=== PATIENT | female | born 1960 | race Caucasian/White ===

== ENCOUNTER 2017-10-15 10:41 | Emergency (ER) | payer OTHER ==
[~2017-10-15] VITALS: Ht 167.6 cm; Wt 70.8 kg
[2017-10-15] MEDS ORDERED: ONDANSETRON PF 4 MG/2 ML VIAL. IV ONE (11:00)
[2017-10-15] MEDS ORDERED: LIDOCAINE 1% Multi-Dose 20 ML VIAL. IJ ONE (11:00)
[2017-10-15] MEDS ORDERED: HYDROmorphone PF 1 MG/ML DISP.SYRIN IV PRN (11:00)
--- NOTE | 2017-10-15 11:16 | RAD ---
Left wrist, 4 views, 10/15/2017: History: Fall, left wrist pain There is a fracture of the distal left radius without significant displacement or angulation. There is a tiny cortical fracture at the tip of the ulnar styloid of indeterminate age. The carpal bones are intact. There is considerable hypertrophic degenerative change at the first CMC joint. Moderate diffuse soft tissue swelling is present about the wrist. IMPRESSION: Nondisplaced distal radial fracture.
[2017-10-15] MEDS ORDERED: HYDR-2758 PO (11:17)
--- NOTE | 2017-10-15 11:17 | PHYS DOC ---
Past History Past Medical History: No Pertinent History Past Surgical History: No Surgical History Alcohol Use: Occasionally Drug Use: None Adult General Chief Complaint Chief Complaint: UPPER EXTREMITY INJURY HPI HPI 57-year-old female presenting to the emergency department today with left wrist injury. She reports walking her dog when he pulled her and she fell with an outstretched hand. She has pain in her wrist with swelling and deformity. The pain is sharp severe nonradiating intermittent and without alleviating factors. She denies any other injuries. She denies head injury neck pain chest pain abdominal pain or any other injuries to her extremities. Review of systems is negative for loss of consciousness, head injury vision changes syncope chest pain or shortness of breath. All other review of systems is negative unless otherwise noted in history of present illness. ED course: 57-year-old female presenting to the emergency department today with injury to her left wrist. She is right-hand dominant. X-ray shows comminuted radial fracture. I discussed the case with the orthopedic surgeon on-call doctor [Dr. Wu]. We placed a hematoma block and performed a closed reduction. Repeat x-rays obtained after showing adequate reduction. The patient was then discharged home in stable condition to follow up with our orthopedic surgeon in in 3 days on friday morning. They were to return if their symptoms worsened or if they were concerned for any reason. [id number] discharge instructions and return precautions were given. Patient's questions were answered to their satisfaction. Patient is comfortable with plan. Procedure note: The patient was placed in appropriate position. 1% lidocaine hematoma block administered in the usual fashion. Adequate anesthesia obtained. Closed reduction performed in the usual fashion. Patient tolerated the procedure well without any complications. volar splint applied in the intrinsic plus positioning. Postreduction neurovascular status examination performed which showed 2 second cap refill normal sensation in all nerve distributions and normal motor function of the hand. No complications. Review of Systems Review of Systems SEE ABOVE. Allergies Allergies Allergies Coded Allergies Type Severity Reaction Last Updated Verified No Known Drug Allergies 10/15/17 No Physical Exam Physical Exam SEE ABOVE Constitutional: Well developed, well nourished, no acute distress, non-toxic appearance. HENT: Normocephalic, atraumatic, bilateral external ears normal, oropharynx moist, no oral exudates, nose normal. [] Eyes: PERRLA, EOMI, conjunctiva normal, no discharge. [] Neck: Normal range of motion, no tenderness, supple, no stridor. Cardiovascular:Heart rate regular rhythm, no murmur [] Lungs & Thorax: Bilateral breath sounds clear to auscultation [] Abdomen: Bowel sounds normal, soft, no tenderness, no masses, no pulsatile masses. Skin: Warm, dry, no erythema, no rash. [] Back: No tenderness, no CVA tenderness. [] Extremities: The patient's left upper extremity is warm and well perfused with palpable pulse. 2 second cap refill. There is a deformity at the wrist. No ecchymosis lacerations or abrasions of the overlying skin. Patient is able to make it a okay, given a thumbs up and cross her fingers. Patient has normal sensation in the radial and ulnar distribution. She reports mild paresthesias in the median distribution prior to manipulation. The patient's left elbow and shoulder proximally are nontender with normal range of motion. The remainder the extremities are neurovascularly intact with 2 second cap refill a palpable pulse and normal range of motion of the joints. Nontender extremities otherwise. Neurologic: Alert and oriented X 3, normal motor function, normal sensory function, no focal deficits noted. Psychologic: Affect normal, judgement normal, mood normal. [] Current Patient Data Vital Signs Vital Signs Date Time Temp Pulse Resp B/P (MAP) Pulse Ox O2 Delivery O2 Flow Rate FiO2 10/15/17 10:55 98.3 83 18 94 Room Air EKG EKG [] Radiology/Procedures Radiology/Procedures [] Course & Med Decision Making Course & Med Decision Making Pertinent Labs and Imaging studies reviewed. (See chart for details) [] Dragon Disclaimer Dragon Disclaimer This electronic medical record was generated, in whole or in part, using a voice recognition dictation system. Departure Departure: Impression: Primary Impression: Radial head fracture, closed Disposition: 01 HOME, SELF-CARE Condition: STABLE Referrals: TONY RICO DO (PCP) Patient Instructions: Radial Head Fracture Additional Instructions: Thank you for allowing us to participate in your care today. Followup with orthopedic surgeon in 3 days on Friday. Call your Primary Doctor tomorrow and inform them of your visit today. If you do not have a primary care provider you can ask for a list of our primary care providers. Return to the emergency department you have any new or concerning findings. Dr. Brando Wu: Address: [address] [place] [address] [address], [place] [address] This should be evaluated by the primary care physician and any necessary consulting services for continued management within a few days after discharge. Return to emergency room if you have any new or concerning symptoms including but not limited to fever, chills, nausea, vomiting, intractable pain, any new rashes, chest pain, shortness of air, uncontrolled bleeding, difficulty breathing, and/or vision loss. You may have been prescribed medication that can change in your level of thinking and ability to operate machinery. These medications include hydrocodone and Ativan. Also, Benadryl has been known to do this as well. Be sure to check with your pharmacist and ask if the medications you've prescribed can affect your level of consciousness. I recommend not operating heavy machinery or driving while on medication such as these. Scripts Hydrocodone Bit/Acetaminophen (HYDROCODONE-APAP 5-325 ) 1 Each Tablet 1 TAB PO PRN Q6HRS Y for PAIN, #20 TAB 0 Refills Prov: PATRICK HINES MD 10/15/17 Splinting The patient was informed of the closed radial fracture on x-ray. We placed a volar splint in the emergency department checked by myself. 2 second cap refill. Normal hand sensation after splint application. PATRICK HINES MD Oct 15, 2017 11:17
[2017-10-15] MEDS ORDERED: HYDROmorphone PF 2 MG/ML VIAL IV PRN (11:30)
[2017-10-15] MEDS ORDERED: IV NORMAL SALINE 1,000ML 1,000 ML IV ONE (11:30)
--- NOTE | 2017-10-15 12:57 | RAD ---
Portable left wrist, 3 views, 10/15/2017: History: Postreduction evaluation Comparison is made to a study from earlier the same day. A radiopaque splint is now in place. The comminuted distal radial fracture is again noted. The major fracture fragments are in good position. A fracture line does involve the articular surface of the distal radius. IMPRESSION: Good alignment of the comminuted distal radial fracture.
[2017-10-15 13:27] VITALS: BP 128/63
== END 2017-10-15 13:29 | disposition home or self-care (01) ==
LOC: ER 10:41
DX: S52.122A Displaced fracture of head of left radius, initial encounter for closed fracture (principal); W19.XXXA Unspecified fall, initial encounter; Y93.K1 Activity, walking an animal; Y99.8 Other external cause status; Y92.89 Other specified places as the place of occurrence of the external cause
CPT/HCPCS: 25605; 73110; 96361; 96374; 96375; 99285; J1170; J2405; J7030

== ENCOUNTER 2017-10-17 16:17 | Emergency (ER) | payer OTHER ==
[~2017-10-17] VITALS: Ht 167.6 cm; Wt 70.8 kg
[~2017-10-17 16:17] MED LIST: HYDR-2758 PO
--- NOTE | 2017-10-17 17:02 | PHYS DOC ---
General Chief Complaint: DRESSING CHANGE Stated Complaint: DRESSING CHANGE Time Seen by MD: 16:59 Source: patient Exam Limitations: no limitations Problems: History of Present Illness Initial Comments Patient is a 57-year-old female who comes to the ED with left arm pain. Patient slipped on the ice on October 15 suffered an arm fracture was seen at [facility]. A splint was placed and she was discharged with pain medications and a referral to see Dr. Wu orthopedics. She has appointment to see or so on Friday, she came in today for arm swelling on arrival her wedding ring was cut off the circulation to her left ring finger essentially causing a tourniquet injury. Due to extremely high ED volume RN removed ring from fourth left finger with ring cutter and reapplied splint to her left arm after loosening up. Patient reported immediate relief of her pain symptoms and on my evaluation most of her left hand finger swellings had nearly resolved. She was essentially asymptomatic upon my evaluation. Onset: other Severity: moderate Pain/Injury Location: left arm, left 4th finger Method of Injury: other Modifying Factors: improves with other Allergies: Coded Allergies: No Known Drug Allergies (Unverified , 10/15/17) Past Medical History Medical History: no pertinent history Surgical History: noncontributory Social History Smoker: cigarettes Alcohol: occasionally Drugs: none Review of Systems Constitutional: denies chills, denies fever Respiratory: denies cough, denies shortness of breath Cardiovascular: denies chest pain, denies palpitations Gastrointestinal: denies nausea, denies vomiting Musculoskeletal: see HPI Skin: see HPI Psychiatric/Neurological: see HPI Physical Exam General Appearance: WD/WN, mild distress HEENT: PERRL/EOMI, normal ENT inspection Neck: non-tender, supple Cardiovascular/Respiratory: normal peripheral pulses, no respiratory distress Back: normal inspection, no vertebral tenderness Elbow/Forearm: swelling (splint applied, there apparently been interval swelling since its initial application causing a tourniquet injury as well as to her distal fingers with swelling numbness and tingling no difficulty with motor) Hand: limited ROM, soft tissue tenderness, stiffness, swelling Neurologic/Tendon: normal motor functions, normal tendon functions, other ( numbness and tingling at the left fourth fingers worse with the ring finger) Psychiatric: alert, oriented x 3 Skin: warm/dry Orders, Labs, Meds Patient expressed near immediate relief of symptoms after splint was loosened and ring was removed. Neurologic status returned to normal she had good capillary refill sensation and motor in the left upper extremity. I discussed signs and symptoms to monitor as well as indications for urgent return to the department. Patient's questions were answered to her satisfaction and she expressed agreement and understanding of the treatment plan will follow-up with Dr. Wu as scheduled. Departure Time of Disposition: 17: Disposition: HOME, SELF-CARE Diagnosis: L hand/4th finger tourniquet injury, dressing banegas Condition: IMPROVED Patient Instructions: Dressing Change, [id number] Additional Instructions: Continue fracture care and medication protocol as before. Follow-up with orthopedics on Friday as scheduled. Return to ED with new or changing symptoms. JUAN CARLOS QUINTERO DO Oct 17, 2017 17:02
[2017-10-17 17:09] VITALS: BP 125/75
== END 2017-10-17 17:09 | disposition home or self-care (01) ==
LOC: ER 16:17
DX: S60.445A External constriction of left ring finger, initial encounter (principal); F17.210 Nicotine dependence, cigarettes, uncomplicated; W49.04XA Ring or other jewelry causing external constriction, initial encounter; Y93.89 Activity, other specified; Y92.89 Other specified places as the place of occurrence of the external cause; Y99.8 Other external cause status
CPT/HCPCS: 99284